=== PATIENT | male | born 1980 | race African-American/Black ===

== ENCOUNTER 2018-09-16 18:37 | Emergency (ER) | payer MEDICAID ==
[~2018-09-16] VITALS: Ht 180.3 cm; Wt 76.4 kg
[~2018-09-16 18:37] MED LIST: CEPH-443 PO; KEF250S PO
[2018-09-16 18:57] VITALS: Ht 180.3 cm; Wt 76.4 kg
[2018-09-16] MEDS ORDERED: ACETAMINOPHEN 325 MG TAB PO ONE (20:30)
--- NOTE | 2018-09-16 21:34 | ERD ---
ER Documentation Chief Complaint Chief Complaint precordial pain x 2 days;hx flu symptoms lately HPI This is a 37-year-old male who is otherwise healthy presents complaining of chest pain. He states he recently recovered from an upper respiratory infection since then he has been having intermittent chest pains and palpitations. He has no cardiac past medical history. No fever or coughing recently. Denies any alcohol or drugs. ROS All systems reviewed and are negative except as per history of present illness. Medications Home Meds Active Scripts Cephalexin* (Keflex* Susp) 50 Mg/Ml Susp, 50 ML PO Q6 for 7 Days, BOTTLE Prov:GRABIEL VAZQUEZ MD 01/04/15 Cephalexin* (Keflex*) 500 Mg Capsule, 500 MG PO QID for 7 Days, CAP Prov:GRABIEL VAZQUEZ MD 01/04/15 Allergies Allergies: Coded Allergies: No Known Drug Allergies (Verified Allergy, Unknown, 01/04/15) PMhx/Soc Medical and Surgical Hx: pt denies Medical Hx, pt denies Surgical Hx Hx Alcohol Use: Yes Hx Substance Use: No Hx Tobacco Use: No Smoking Status: Never smoker FmHx Family History: No diabetes Physical Exam Vitals Vital Signs Date Temp Pulse Resp B/P (MAP) Pulse Ox O2 O2 Flow FiO2 Time Delivery Rate 09/16/18 98.2 87 18 120/77 100 18:57 (91) Physical Exam INITIAL VITAL SIGNS: Reviewed by me GENERAL: Awake, alert and oriented x 4, well appearing, nontoxic, speaking in full sentences. No acute distress HEAD: Atraumatic NECK: Supple. No masses. Full range of motion. No meningismus. No midline tenderness. RESPIRATORY: Clear to auscultation bilaterally. Symmetric chest wall rise. No wheezing or rales. No accessory muscle use. CV: Regular rate and rhythm. No murmurs, rubs, or gallops. ABDOMEN: Soft, non-distended. Nontender. Negative [place]. Negative [place] point tenderness. No CVA tenderness bilaterally. No guarding. No rebound. Result Diagram: 09/16/18194209/16/181942 Results 24 hrs Laboratory Tests Test 09/16/18 19:43 White Blood Count 5.5 10^3/ul Red Blood Count 5.28 10^6/ul Hemoglobin 12.7 g/dl Hematocrit 42.0 % Mean Corpuscular Volume 79.5 fl Mean Corpuscular Hemoglobin 24.1 pg Mean Corpuscular Hemoglobin Concent 30.2 g/dl Red Cell Distribution Width 13.9 % Platelet Count 194 10^3/UL Mean Platelet Volume 10.4 fl Immature Granulocytes % 0.500 % Neutrophils % 64.7 % Lymphocytes % 20.7 % Monocytes % 12.8 % Eosinophils % 1.1 % Basophils % 0.2 % Nucleated Red Blood Cells % 0.0 /100WBC Immature Granulocytes # 0.030 10^3/ul Neutrophils # 3.5 10^3/ul Lymphocytes # 1.1 10^3/ul Monocytes # 0.7 10^3/ul Eosinophils # 0.1 10^3/ul Basophils # 0.0 10^3/ul Nucleated Red Blood Cells # 0.0 10^3/ul Sodium Level 138 mmol/L Potassium Level 3.6 mmol/L Chloride Level 101 mmol/L Carbon Dioxide Level 28 mmol/L Anion Gap 9 Blood Urea Nitrogen 7 mg/dl Creatinine 0.81 mg/dl Est Glomerular Filtrat Rate mL/min > 60 mL/min Glucose Level 99 mg/dl Calcium Level 9.3 mg/dl Troponin I < 0.012 ng/ml Current Medications Medications Dose Sig/Maura Start Time Status Last (Trade) Ordered Route PRN Stop Time Admin Dose Reason Admin 650 mg ONCE ONCE 09/16/18 DC 09/16/18 Acetaminophen PO 20:30 20:38 (Tylenol 09/16/18 20:31 Tab) Procedures/MDM The differential diagnosis includes but is not limited to acute coronary syndrome acute myocardial infarction, pericarditis, pulmonary embolism, aortic dissection, pneumonia, pleural effusion, pneumothorax, GERD, chest wall pain, and others. Laboratory analysis shows no evidence of acute emergent abnormality. No evidence of significant leukocytosis suggesting systemic infection or severe anemia. No evidence of acute renal or liver failure, no evidence of severe alkalosis or acidosis troponin negative. EKG no evidence of ST elevation or acute ischemic changes. Chest x-ray negative. Patient counseled regarding my diagnostic impression and care plan. Prior to discharge all questions answered. Pt agrees with treatment plan and understands strict return precautions. Pt is instructed to follow up with primary care provider within 24-48 hours. Precautionary instructions provided including instructions to return to the ER if not improving or for any worsening or changing symptoms or concerns. Departure Diagnosis: Primary Impression: Chest pain Condition: Stable Patient Instructions: Chest Pain, Uncertain Cause Additional Instructions: Call your primary care doctor TOMORROW for an appointment during the next 1-2 days.See the doctor sooner or return here if your condition worsens before your appointment time. SARAH OSORIO PA-C Sep 16, 2018 21:34
[2018-09-16 21:45] VITALS: BP 116/74; PULSE 68; RESP 16
== END 2018-09-16 21:48 | disposition home or self-care (01) ==
LOC: FTE 18:37
DX: R07.9 Chest pain, unspecified (principal)
CPT/HCPCS: 36415; 71045; 80048; 84484; 85025; Z7502; Z7610